=== PATIENT | male | born 1990 | race Caucasian/White ===

== ENCOUNTER 2022-10-16 15:43 | Emergency (ER) | payer SELFPAY ==
[2022-10-16] MEDS ORDERED: NEOMY/POLY/HC 1% OTIC DROPS ONE (16:41)
--- NOTE | 2022-10-16 16:55 | EDPHYS ---
Physician Documentation [facility] Name: Lukas Wright Age: 32 yrs Sex: Male : 1990 Arrival Date: 10/16/2022 Time: 15:43 Bed 10 Private MD: ED Physician Stacie Urrutia HPI: 10/16 16:52 This 32 yrs old Male presents to ER via Ambulatory with complaints of loss of hearing snw to left ear. 16:52 Onset: The symptoms/episode began/occurred 1.5 week(s) ago. Associated signs and snw symptoms: Pertinent positives: decreased hearing, increased swelling, tenderness. The patient has not experienced similar symptoms in the past. It is unknown whether or not the patient has recently seen a physician. Historical: - Allergies: 16:06 No Known Allergies; ll1 - PMHx: 16:06 None; ll1 - PSHx: 16:06 None; ll1 - Immunization history:: Client reports having NOT received the Covid vaccine. - Social history:: Smoking status: Reported history of juuling and/or vaping. Patient denies any tobacco usage or history of. ROS: 16:53 Constitutional: Negative for fever, chills, and weight loss, Eyes: Negative for injury, snw pain, redness, and discharge, Neck: Negative for injury, pain, and swelling, Cardiovascular: Negative for chest pain, palpitations, and edema, Respiratory: Negative for shortness of breath, cough, wheezing, and pleuritic chest pain, Abdomen/GI: Negative for abdominal pain, nausea, vomiting, diarrhea, and constipation, Back: Negative for injury and pain, : Negative for injury, bleeding, discharge, and swelling, MS/Extremity: Negative for injury and deformity, Skin: Negative for injury, rash, and discoloration, Neuro: Negative for headache, weakness, numbness, tingling, and seizure, Psych: Negative for depression, anxiety, suicide ideation, homicidal ideation, and hallucinations. 16:53 ENT: Positive for ear pain. Exam: 16:42 Constitutional: This is a well developed, well nourished patient who is awake, alert, snw and in no acute distress. Head/Face: Normocephalic, atraumatic. Eyes: Pupils equal round and reactive to light, extra-ocular motions intact. Lids and lashes normal. Conjunctiva and sclera are non-icteric and not injected. Cornea within normal limits. Periorbital areas with no swelling, redness, or edema. Neck: Trachea midline, no thyromegaly or masses palpated, and no cervical lymphadenopathy. Supple, full range of motion without nuchal rigidity, or vertebral point tenderness. No Meningismus. Chest/axilla: Normal chest wall appearance and motion. Nontender with no deformity. No lesions are appreciated. Cardiovascular: Regular rate and rhythm with a normal S1 and S2. No gallops, murmurs, or rubs. Normal PMI, no JVD. No pulse deficits. Respiratory: Lungs have equal breath sounds bilaterally, clear to auscultation and percussion. No rales, rhonchi or wheezes noted. No increased work of breathing, no retractions or nasal flaring. Abdomen/GI: Soft, non-tender, with normal bowel sounds. No distension or tympany. No guarding or rebound. No evidence of tenderness throughout. Back: No spinal tenderness. No costovertebral tenderness. Full range of motion. Skin: Warm, dry with normal turgor. Normal color with no rashes, no lesions, and no evidence of cellulitis. MS/ Extremity: Pulses equal, no cyanosis. Neurovascular intact. Full, normal range of motion. Neuro: Awake and alert, GCS 15, oriented to person, place, time, and situation. Cranial nerves II-XII grossly intact. Motor strength 5/5 in all extremities. Sensory grossly intact. Cerebellar exam normal. Normal gait. Psych: Awake, alert, with orientation to person, place and time. Behavior, mood, and affect are within normal limits. 16:42 ENT: External ear(s): pain with movement, swelling, that is moderate, Ear canal(s): purulent discharge, that is moderate, in the left canal, right canal and TM with erythema, TM's: not visable, because of discharge, Nose: is normal, Posterior pharynx: erythema, that is mild, that is moderate. Vital Signs: 16:05 BP 158 / 80; Pulse 73; Resp 17; Temp 98.9; Pulse Ox 96% ; Weight 107.95 kg; Height 6 ll1 ft. 0 in. ; Pain 8/10; 16:05 Body Mass Index 32.28 (107.95 kg, 182.88 cm) ll1 16:05 Pain Scale: Adult ll1 MDM: 16:19 Differential diagnosis: bacterial infection, foreign body. Data reviewed: vital signs, snw nurses notes. I considered the following discharge prescriptions or medication management in the emergency department Medications were administered in the Emergency Department. See MAR. Counseling: I had a detailed discussion with the patient and/or guardian regarding: the historical points, exam findings, and any diagnostic results supporting the discharge/admit diagnosis, the presence of at least one elevated blood pressure reading (>120/80) during this emergency department visit, the need for outpatient follow up, for definitive care, to return to the emergency department if symptoms worsen or persist or if there are any questions or concerns that arise at home. Special discussion: I have referred the patient to see his PCP for further evaluation of high blood pressure. Based on the history and exam findings, there is no indication for further emergent testing or inpatient evaluation. I discussed with the patient/guardian the need to see the ENT specialist for further evaluation of the symptoms. I discussed with the patient/guardian the need to see the primary care provider for further evaluation of the symptoms. 16:26 Patient medically screened. snw 16:53 Response to treatment: the patient's symptoms have mildly improved after treatment. snw 10/16 16:21 Order name: Jocelin. Order: ear wick; Complete Time: 16:44 snw Administered Medications: 16:36 CANCELLED (Other Intervention Used): CIPRODEX Otic Drops 4 drops Otic in both ears once snw 17:00 Drug: Ketorolac IM 30 mg Route: IM; Site: right deltoid; iw 17:00 Drug: Amoxicillin-Clavulanate PO 875 mg Route: PO; iw 17:00 Drug: Cadonlle-Yuqdfruuj-KV Otic Drops 4 drops Route: Otic; Site: left ear; iw Disposition: 18:00 STAFF ATTESTATION STATEMENT: I was immediately available onsite in the emergency sd2 department for consultation in the care of this patient. I did not see or examine this patient. Stacie Urrutia MD. Disposition Summary: 10/16/22 16:54 Discharge Ordered Location: Home snw Condition: Stable snw Diagnosis - Acute serous otitis media, right ear snw - Other otitis externa, left ear snw Followup: snw - With: Emergency Department - When: As needed - Reason: Worsening of condition Followup: snw - With: Private Physician - When: 2 - 3 days - Reason: Recheck today's complaints, Continuance of care, Re-evaluation by your physician Discharge Instructions: - Discharge Summary Sheet snw - Ear Drops, Adult snw - Otitis Media, Adult snw - Otitis Externa snw - Rehydration, Adult snw Forms: - Medication Reconciliation Form snw - Thank You Letter snw - Antibiotic Education snw - Prescription Opioid Use snw - Patient Portal Instructions snw Prescriptions: - Cortisporin-TC 3.3-3-10-0.5 mg/mL Otic drops,suspension - instill 4 drops by OTIC route every 6 hours; 1 Unspecified; Refills: 0, Product snw Selection Permitted - Zyrtec 10 mg Oral Tablet - take 1 tablet by ORAL route once daily As needed; 20 tablet; Refills: 0, snw Product Selection Permitted - Tramadol 50 mg Oral Tablet - take 1 tablet by ORAL route every 8 hours as needed; 12 tablet; Refills: 0, snw Product Selection Permitted - Pepcid 20 mg Oral Tablet - take 1 tablet by ORAL route once daily; 20 tablet; Refills: 0, Product snw Selection Permitted Signatures: Cammie Germain, CARE MANAGER CNA-C CARE MANAGER CNA-Csnw Skylar Haynes RN RN iw Alpesh Yadav RN RN ll1 Stacie Urrutia MD MD sd2 Corrections: (The following items were deleted from the chart) 16:36 16:19 CIPRODEX Otic Drops 4 drops Otic in both ears once ordered. snw snw
--- NOTE | 2022-10-16 16:55 | ER ---
Nurse's Notes [facility] Name: Lukas Wright Age: 32 yrs Sex: Male : 1990 Arrival Date: 10/16/2022 Time: 15:43 Bed 10 Private MD: Diagnosis: Acute serous otitis media, right ear;Other otitis externa, left ear Presentation: 10/16 16:05 Chief complaint: Patient states: Pain to L ear since 10/08/22. L ear loss of hearing for ll1 1 week. No fever. Coronavirus screen: Client denies travel out of the [place] in the last 14 days. At this time, the client does not indicate any symptoms associated with coronavirus-19. Ebola Screen: Patient denies travel to an Ebola-affected area in the 21 days before illness onset. Initial Sepsis Screen: Does the patient meet any 2 criteria? No. Patient's initial sepsis screen is negative. Does the patient have a suspected source of infection? Yes: Other: ear pain. Risk Assessment: Do you want to hurt yourself or someone else? Patient reports no desire to harm self or others. Onset of symptoms was October 08, 2022. 16:05 Method Of Arrival: Ambulatory ll1 16:05 Acuity: GEOFF 4 ll1 Historical: - Allergies: 16:06 No Known Allergies; ll1 - PMHx: 16:06 None; ll1 - PSHx: 16:06 None; ll1 - Immunization history:: Client reports having NOT received the Covid vaccine. - Social history:: Smoking status: Reported history of juuling and/or vaping. Patient denies any tobacco usage or history of. Assessment: 17:09 Reassessment: Patient appears in no apparent distress at this time. Patient and/or iw family updated on plan of care and expected duration. Pain level reassessed. Patient is alert, oriented x 3, equal unlabored respirations, skin warm/dry/pink. Vital Signs: 16:05 BP 158 / 80; Pulse 73; Resp 17; Temp 98.9; Pulse Ox 96% ; Weight 107.95 kg; Height 6 ll1 ft. 0 in. ; Pain 8/10; 16:05 Body Mass Index 32.28 (107.95 kg, 182.88 cm) ll1 16:05 Pain Scale: Adult ll1 ED Course: 15:44 Patient arrived in ED. am2 15:52 C[facility] Germain [facility]C [facility] snw 15:52 Stacie Urrutia MD is Attending Physician. snw 16:06 Triage completed. ll1 16:07 Arm band placed on. ll1 16:47 Madonna Franklin, RN is Primary Nurse. db 17:09 No provider procedures requiring assistance completed. Patient did not have IV access iw during this emergency room visit. Administered Medications: 16:36 CANCELLED (Other Intervention Used): CIPRODEX Otic Drops 4 drops Otic in both ears once snw 17:00 Drug: Ketorolac IM 30 mg Route: IM; Site: right deltoid; iw 17:00 Drug: Amoxicillin-Clavulanate PO 875 mg Route: PO; iw 17:00 Drug: Sjnkjmxb-Wnknnwlfm-UE Otic Drops 4 drops Route: Otic; Site: left ear; iw Outcome: 16:54 Discharge ordered by MD. snw 17:09 Discharged to home ambulatory. iw 17:09 Condition: good 17:09 Discharge instructions given to patient, Instructed on discharge instructions, follow up and referral plans. medication usage, Demonstrated understanding of instructions, follow-up care, medications, Prescriptions given X 4. 17:09 Patient left the ED. iw Signatures: Cammie Germain FNP-C WASH PLANT OPERATOR-Csnw Skylar Haynes, RN RN iw Najma Gates am2 Alpesh Yadav RN RN 1 Madonna Franklin, RN RN db
[2022-10-16] MEDS ORDERED: KETOROLAC 30 MG/ML INJ ONE ×2 (17:02→17:03)
[2022-10-16] MEDS ORDERED: AMOX/K CLAV 875 MG TAB ONE (17:03)
[2022-10-16 17:38] VITALS: BP 158/80; TEMP 98.9; O2SAT 96
== END 2022-10-16 17:09 | disposition home or self-care (01) ==
LOC: ER 15:43
DX: H65.01 Acute serous otitis media, right ear (principal); H60.8X2 Other otitis externa, left ear
CPT/HCPCS: 96372; 99284